=== PATIENT | female | born 1940 | race Caucasian/White ===

== ENCOUNTER → 2017-01-18 | Day surgery (SDC) | payer MEDICARE, OTHER ==
[~2017-01-18] VITALS: Ht 152.4 cm; Wt 73.5 kg
[~2017-01-18] MED LIST: ARICEPT 10MG TA10 MG PO; CERTAGEN1 EACH PO; HYDROCODON-ACE473 ML PO; LOTENSIN 10MG T10 MG PO; LOVAZA1 GM PO; MOBIC15 MG PO; NORVASC5 MG PO; PROTONIX 40MG T40 MG PO; SINGULAIR10 MG PO; SYNTHROID25 MCG PO; ZOCOR20 MG PO
[2017-01-18 10:06] LABS: CREATININE 0.8 mg/dL (0.5-1.0); POTASSIUM 4.4 mmol/L (3.5-5.1)
== END | disposition home or self-care (01) ==
LOC: FAS 08:53
PROVIDERS: Anesthesiology
DX: K44.9 Diaphragmatic hernia without obstruction or gangrene (principal); R13.10 Dysphagia, unspecified; I10 Essential (primary) hypertension; M19.90 Unspecified osteoarthritis, unspecified site; E03.9 Hypothyroidism, unspecified; M79.7 Fibromyalgia; J45.909 Unspecified asthma, uncomplicated; F41.9 Anxiety disorder, unspecified; G30.9 Alzheimer's disease, unspecified; Z88.5 Allergy status to narcotic agent; Z90.710 Acquired absence of both cervix and uterus
CPT/HCPCS: 36415; 80048; 88305; 88312; J2704

== ENCOUNTER 2022-03-25 15:09 | Emergency (ER) | payer MEDICARE ==
[~2022-03-25 15:09] MED LIST changes: +ALENDRONATE SOD70 MG PO; +AZITHROMYCIN250 MG PO; +CARAFATE S500 MG/TSP PO; +CBD OIL PO; +DOXYCYCLINE HYC20 MG PO; +HYDROCODONE-CH473 ML PO; +MUCINEX 600MG600 MG PO; +NORCO 5-325 TA1 EACH PO; +OMEPRAZOLE40 MG PO; +PREDNISONE 20MG20 MG PO; +REMERON15 MG PO; +TESSALON PERLE100 MG PO
[2022-03-25 17:28] LABS: BASOPHIL 0.5 % (0-2); EOSINOPHIL 2.6 % (0-7); HCT 41.3 % (37.0-47.0); HGB 13.8 g/dl (12.5-16.0); LYMPHOCYTE 17.5 % (15-48); MCH 30.5 pg (25.0-31.0); MCHC 33.4 g/dL (32.0-36.0); MCV 91.4 fL (78.0-100.0); MPV 10.9 fL (6.0-9.5); NEUTROPHIL 65.8 % (41-80); NRBC 0; PLT 257 K/uL (150-400); RBC 4.52 M/uL (4.20-5.40); RDW 12.5 % (11.5-14.0); WBC 8.9 K/uL (4.0-10.5)
[2022-03-25 17:33] LABS: INR 1.11 (0.9-1.2); PTT 37.1 SECONDS (24.9-34.6)
[2022-03-25 17:44] LABS: ALBUMIN 3.3 g/dL (3.4-5.0); BILIRUBIN - TOTAL 0.6 mg/dL (0.2-1.0); BUN/CREAT RATIO (CALC) 19.2 RATIO; CREATININE 0.73 mg/dL (0.51-0.95); GLOBULIN (CALCULATION) 3.1 g/dL; POTASSIUM 4.3 mmol/L (3.5-5.1); TOTAL PROTEIN 6.4 g/dL (6.4-8.2)
[2022-03-25 18:13] LABS: CORONAVIRUS 2019 SARS-COV-2 NEGATIVE (NEGATIVE); INFLUENZA A NAA NEGATIVE (NEGATIVE)
[2022-03-25] MEDS ORDERED: NORCO 5-325 TA1 EACH PO (18:51)
== END 2022-03-25 19:08 | disposition home or self-care (01) ==
LOC: FER 15:09
PROVIDERS: Emergency Medicine
DX: M16.11 Unilateral primary osteoarthritis, right hip (principal); J45.909 Unspecified asthma, uncomplicated; Z88.5 Allergy status to narcotic agent; Z20.822 Contact with and (suspected) exposure to COVID-19; Z28.311 Partially vaccinated for COVID-19
CPT/HCPCS: 36415; 71045; 80053; 84484; 85025; 85610; 85730; 93005; J2270; J2405; U0002